=== PATIENT | female | born 2000 | race Caucasian/White ===

== ENCOUNTER 2018-11-11 19:27 | Emergency (ER) | payer BC ==
[2018-11-11] MEDS ORDERED: ONDANSETRON HCL INJ/PF 4 MG/2 ML SDV IV ONE (19:59)
[2018-11-11] MEDS ORDERED: NORMAL SALINE 1000 ML 1,000 ML IV ONE (19:59)
[2018-11-11] MEDS ORDERED: MORPHINE SULFATE 10 MG/ML INJ IV ONE ×2 (19:59→21:27)
[2018-11-11] MEDS ORDERED: CLINDAMYCIN 600 MG/D5W RTU 600 MG/50 ML RTUPB IV ONE ×2 (20:01→21:27)
[2018-11-11] MEDS ORDERED: SULFAMETHOX/TRIMETH 800-160 MG/10 ML VIAL IV ONE (20:06)
--- NOTE | 2018-11-11 20:06 | ER Document Report ---
ED Medical Screen (RME) - General Chief Complaint: Dog Bite Stated Complaint: DOG BITE Time Seen by Provider: 11/11/18 20:02 TRAVEL OUTSIDE OF THE [place] IN LAST 30 DAYS: No - HPI Notes: 11/11/18 20:02 Patient presented to the emergency room with dog bite to the face. She said she was trying to kiss her dog when the dog bite her face. She has a deep laceration to the right face around the lip area. Bleeding is controlled at this time. The laceration is deep. The rest of her physical exam is unremarkable. - Related Data Allergies/Adverse Reactions: amoxicillin Allergy (Verified 11/11/18 19:58) Past Medical History - Social History Frequency of alcohol use: None Drug Abuse: None Renal/ Medical History: Denies: Hx Peritoneal Dialysis Physical Exam - Vital signs Vitals: Temp Pulse Resp BP Pulse Ox 98.3 F 82 22 127/88 H 98 11/11/18 19:30 11/11/18 19:30 11/11/18 19:30 11/11/18 19:30 11/11/18 19:30 Course - Vital Signs Vital signs: Temp Pulse Resp BP Pulse Ox 98.3 F 82 22 127/88 H 98 11/11/18 19:30 11/11/18 19:30 11/11/18 19:30 11/11/18 19:30 11/11/18 19:30
--- NOTE | 2018-11-11 21:21 | ER Document Report ---
ED Animal Bite - General Chief Complaint: Dog Bite Stated Complaint: DOG BITE Time Seen by Provider: 11/11/18 21:00 Mode of Arrival: Ambulatory Information source: Patient Notes: HISTORY OF PRESENT ILLNESS: Patient is a 17-year-old female with no significant past medical history who presents with dog bite to the face. The dog is fully vaccinated and belongs to the patient, who also is fully vaccinated. Location: Face Onset: Immediately prior to arrival Provocation: Movement Quality: Burning Radiation: None Severity: Moderate Timing: Constant Associated symptoms: No fevers or chills, no cough or congestion, no numbness/tingling of the face REVIEW OF SYSTEMS: CONSTITUTIONAL : Denies fever or chills, no sweats. Denies recent illness. HEENT: Positive for laceration to the face. Denies eye, ear, throat, or mouth pain or symptoms. Denies nasal or sinus congestion. CARDIOVASCULAR: Denies chest pain. RESPIRATORY: Denies cough, cold, or chest congestion. Denies shortness of caesar ath, difficulty breathing, or wheezing. GASTROINTESTINAL: Denies abdominal pain. Denies nausea, vomiting, or diarrhea. Denies constipation. GENITOURINARY: Denies difficulty urinating, painful urination, burning, frequency, or blood in urine. Denies vaginal bleeding, abnormal or irregular periods. MUSCULOSKELETAL: Denies neck or back pain or joint pain or swelling. SKIN: Denies rash or skin lesions. HEMATOLOGIC : Denies easy bruising or bleeding. LYMPHATIC: Denies swollen, enlarged glands. NEUROLOGICAL: Denies altered mental status or loss of consciousness. Denies headache. Denies weakness or paralysis or loss of use of either side. Denies problems with gait or speech. Denies sensory or motor loss. PSYCHIATRIC: Denies anxiety or stress or depression. All other systems reviewed and negative. PHYSICAL EXAMINATION: GENERAL: Well-appearing, well-nourished and in no acute distress. HEAD: 3.5-4 cm curvilinear laceration to the right side of the mouth extending from the corner of the labial border with exposed muscle and subcutaneous structures, no active bleeding. No scalp deformity, depression, or crepitance. EYES: Pupils are 3 mm and equal/round/reactive to light, extraocular movements intact, sclera anicteric, conjunctiva are normal. ENT: Nares patent bilaterally, oropharynx clear without exudates or palatal petechia. Moist mucous membranes. No tonsil hypertrophy. NECK: Normal range of motion, supple without lymphadenopathy. LUNGS: Breath sounds present, equal, and clear to auscultation bilaterally. No wheezes, rales, or rhonchi. HEART: Regular rate and rhythm without murmurs, rubs, or gallops. 2+ peripheral pulses. Normal capillary refill. ABDOMEN: Soft, nontender, nondistended. Normoactive bowel sounds. No guarding, no rebound. No masses appreciated. BACK: Normal contour, no midline tenderness. Rectal exam deferred. PELVC: Deferred. EXTREMITIES: Normal range of motion, no pitting or edema. No cyanosis. NEUROLOGICAL: No focal neurological deficits. Moves all extremities spontaneously and on command. PSYCH: Normal mood, normal affect. No suicidal thoughts/ideations. No homocidal thoughts/ideations. No hallucinations. SKIN: Warm, dry, normal turgor, no rashes or lesions noted. ASSESSMENT AND PLAN: This patient is a 17-year-old female who presents with dog bite to the face. Thankfully, both the patient and the animal are both fully vaccinated. 1. Will give IV Unasyn with morphine. 2. Will clean and dress the wound and contact plastic surgery. TRAVEL OUTSIDE OF THE [place] IN LAST 30 DAYS: No - Related Data Allergies/Adverse Reactions: amoxicillin Allergy (Verified 11/11/18 19:58) Past Medical History - General Information source: Patient - Social History Smoking Status: Current Every Day Smoker Frequency of alcohol use: None Drug Abuse: None Lives with: Family Family History: Reviewed & Not Pertinent Patient has suicidal ideation: No Patient has homicidal ideation: No - Past Medical History Cardiac Medical History: Reports: None Pulmonary Medical History: Reports: None EENT Medical History: Reports: None Neurological Medical History: Reports: None Endocrine Medical History: Reports: None Renal/ Medical History: Reports: None. Denies: Hx Peritoneal Dialysis Malignancy Medical History: Reports: None GI Medical History: Reports: None Musculoskeletal Medical History: Reports None Skin Medical History: Reports None Psychiatric Medical History: Reports: None Traumatic Medical History: Reports: None Infectious Medical History: Reports: None Surgical Hx: Negative Past Surgical History: Reports: None - Immunizations Immunizations up to date: Yes Hx Diphtheria, Pertussis, Tetanus Vaccination: Yes History of Influenza Vaccine for 06/2017 - 10/2017 Season: Unknown Physical Exam - Vital signs Vitals: Temp Pulse Resp BP Pulse Ox 98.3 F 82 22 127/88 H 98 11/11/18 19:30 11/11/18 19:30 11/11/18 19:30 11/11/18 19:30 11/11/18 19:30 Course - Re-evaluation Re-evalutation: 11/12/18 00:04 Patient will be allowed to be discharged and drive herself to tertiary center. She has been given IV Unasyn as well as morphine for pain control. Patient voices both understanding and agreeing with the plan. - Vital Signs Vital signs: Temp Pulse Resp BP Pulse Ox 98.3 F 82 21 117/85 100 11/11/18 19:30 11/11/18 19:30 11/11/18 21:01 11/11/18 21:01 11/11/18 21:01 - Consults Dr. Rod Time consulted: 21:15 - patient would best be treated at a Tertiary center Dr. Bearden ([facility]) Time consulted: 23:01 - feels patient is appropriate to be discharged with outpatient follow-[facility] [place] Consulted provider: follow-up in office Dr. Joiner Time consulted: 23:37 - will accept patient is transer ED-to-ED Discharge - Discharge Clinical Impression: Dog bite of face Qualifiers: Encounter type: initial encounter Qualified Code(s): S01.85XA - Open bite of other part of head, initial encounter Condition: Stable Disposition: [facility]
[2018-11-11] MEDS ORDERED: CIPROFLOXACIN 400 MG/D5W RTU 400 MG/200 ML RTUPB IV SCH (22:00)
[2018-11-11] MEDS ORDERED: AMPICILLIN SOD/SULBACTAM 3 GM VIAL IV ONE (22:14)
[2018-11-12] MEDS ORDERED: MORPHINE SULFATE 10 MG/ML INJ IV ONE (00:01)
[2018-11-12 00:24] VITALS: BP 110/72
== END 2018-11-12 00:25 | disposition short-term general hospital (02) ==
LOC: ER 19:27
DX: S01.85XA Open bite of other part of head, initial encounter (principal); W54.0XXA Bitten by dog, initial encounter; Y93.89 Activity, other specified; F17.200 Nicotine dependence, unspecified, uncomplicated; Z88.0 Allergy status to penicillin
CPT/HCPCS: 96376; 99284; 96375; 96365; 96367; J0295; J2270 ×2; J2405; J7030